=== PATIENT | female | born 1950 | race Caucasian/White ===

== ENCOUNTER → 2019-08-22 | Outpatient (CLI) | payer MEDICARE ==
[~2019-08-22] MED LIST: ALEN70TA6 PO; AMLO-150 PO; BENA40TA3 PO; CALC-126 PO; POTA20TA89 PO; PRAV20TA2 PO; VIT1CAPS42 PO
[2019-08-22 15:35] LABS: ALANINE AMINOTRANSFERASE 15 U/L (12-78); ALBUMIN 3.4 g/dL (3.4-5.0); ANION GAP 5 mmol/L (5-15); CALCIUM 8.1 mg/dL (8.5-10.1); CHLORIDE 106 mmol/L (98-107); CREATININE 0.68 mg/dL (0.55-1.02)
[2019-08-22 15:38] LABS: ALKALINE PHOSPHATASE 60 U/L (45-117); BILIRUBIN,TOTAL 0.9 mg/dL (0.2-1.0); TOTAL PROTEIN 6.7 g/dL (6.4-8.2)
== END | disposition home or self-care (01) ==
LOC: STAR 14:09
PROVIDERS: ATTEND Orthopaedic Surgery
DX: Z01.818 Encounter for other preprocedural examination (principal); M19.012 Primary osteoarthritis, left shoulder; M75.122 Complete rotator cuff tear or rupture of left shoulder, not specified as traumatic; M75.42 Impingement syndrome of left shoulder
CPT/HCPCS: 36415; 80053; 93005

== ENCOUNTER 2019-08-28 05:36 | Day surgery (SDC) | payer MEDICARE ==
[~2019-08-28] VITALS: Ht 165.1 cm; Wt 53.6 kg
[2019-08-28 06:02] VITALS: BP 128/78
[2019-08-28] MEDS ORDERED: LACTATED RINGERS 1,000 ML IV SCH (06:05)
[2019-08-28] MEDS ORDERED: GABAPENTIN 300 MG CAPSULE PO ONE (06:30)
[2019-08-28] MEDS ORDERED: SCOPOLAMINE PATCH, 1.5MG PATCH.TD72 TD ONE (06:30)
[2019-08-28] MEDS ORDERED: ACETAMINOPHEN 500 MG TABLET PO ONE (06:30)
[2019-08-28] MEDS ORDERED: MIDAZOLAM 1 MG/ML, 2ML ONE (06:37)
[2019-08-28] MEDS ORDERED: FENTANYL PF 100 MCG/2ML ONE (06:37)
[2019-08-28] MEDS ORDERED: ROCURONIUM 10 MG/ML,10ML ONE (07:03)
[2019-08-28] MEDS ORDERED: SUCCINYLCHOLINE 20 MG/ML, 10ML ONE (07:03)
[2019-08-28] MEDS ORDERED: EPHEDRINE 50 MG/ML, 1ML ONE (07:03)
[2019-08-28] MEDS ORDERED: LIDOCAINE 1%-EPI 1:100K, 30ML INFIL ONE (07:34)
[2019-08-28] MEDS ORDERED: DEXAMETHASONE 4 MG/ML, 1ML ONE (07:41)
[2019-08-28] MEDS ORDERED: LIDOCAINE-MPF 2% ,5ML ONE (07:41)
[2019-08-28] MEDS ORDERED: PROPOFOL 10 MG/ML, 20ML ONE (07:41)
[2019-08-28] MEDS ORDERED: BUPIVACAINE/PF 0.5% ONE (07:41)
[2019-08-28] MEDS ORDERED: CEFAZOLIN 1,000 MG ONE (07:41)
[2019-08-28] MEDS ORDERED: ONDANSETRON 2MG/ML, 2ML ONE (07:41)
[2019-08-28] MEDS ORDERED: MIDAZOLAM 1 MG/ML, 2ML IV PRN (08:00)
[2019-08-28] MEDS ORDERED: OXYcodone 5 MG/5 ML ORAL.SOL UDC PO PRN (08:00)
[2019-08-28] MEDS ORDERED: hydrALAzine 20 MG/ML, 1ML IV PRN (08:00)
[2019-08-28] MEDS ORDERED: MEPERIDINE/PF 25MG/ML,1ML IVPush PRN (08:00)
[2019-08-28] MEDS ORDERED: FENTANYL PF 100 MCG/2ML IV PRN (08:00)
[2019-08-28] MEDS ORDERED: METOPROLOL 1 MG/ML, 5ML IV PRN (08:00)
[2019-08-28] MEDS ORDERED: PROMETHAZINE 25 MG/ML, 1ML IV PRN (08:00)
[2019-08-28] MEDS ORDERED: ALBUTEROL/IPRATROPIUM 2.5MG/0.5MG, 3 ML NPPB PRN (08:00)
== END 2019-08-28 10:25 | disposition home or self-care (01) ==
LOC: OUT 05:36
PROVIDERS: ATTEND Orthopaedic Surgery
DX: S43.432A Superior glenoid labrum lesion of left shoulder, initial encounter (principal); M75.112 Incomplete rotator cuff tear or rupture of left shoulder, not specified as traumatic; M75.42 Impingement syndrome of left shoulder; M19.012 Primary osteoarthritis, left shoulder; M75.52 Bursitis of left shoulder; I10 Essential (primary) hypertension; Z88.5 Allergy status to narcotic agent; Z88.8 Allergy status to other drugs, medicaments and biological substances; Z85.828 Personal history of other malignant neoplasm of skin; X58.XXXA Exposure to other specified factors, initial encounter; Y93.89 Activity, other specified; Y92.89 Other specified places as the place of occurrence of the external cause; Y99.8 Other external cause status
CPT/HCPCS: 29823; 29824; 29826; 29827; 64415; C1713; J0330; J0690; J1100; J2250; J2405; J2704; J3010; J3490; J7120